=== PATIENT | male | born 1950 | race Caucasian/White ===

== ENCOUNTER 2018-09-30 11:59 | Inpatient (IN) ==
[2018-09-30] MEDS ORDERED: Lactulose Oral Soln 20 GM/30 ML UDC PO PRN (12:28)
[2018-09-30 14:45] LABS: Basophils % 1.1 %; Eosinophils # 0.1 K/mcL (0.0-0.6); Eosinophils % 4.5 %; Hematocrit 37.5 % (37.5-50.1); Hemoglobin 11.8 g/dL (12.9-16.9); Immature Granulocytes % 0.4 % (0-4); Lymphocytes # 0.6 K/mcL (0.6-4.6); Lymphocytes % 21.6 %; Mean Corpuscular HGB Conc 31.5 g/dL (31.6-35.5); Mean Corpuscular Hemoglobin 34.7 pg (28.0-33.3); Mean Corpuscular Volume 110.3 fL (83.0-100.0); Mean Platelet Volume 12.2 fL (9.4-12.4); Monocytes # 0.3 K/mcL (0.0-1.3); Monocytes % 11.5 %; Neutrophils # 1.6 K/mcL (1.6-8.9); Red Cell Distribution Width 13.3 % (11.5-14.5); Segmented Neutrophils % 60.9 %
[2018-09-30 14:46] LABS: Platelet Count 47 K/mcL (140-400)
[2018-09-30 15:02] LABS: BUN/Creatinine Ratio 14 (6-26); Blood Urea Nitrogen 16 mg/dL (8-23); Calcium 11.5 mg/dL (8.6-10.3); Carbon Dioxide 45 mEq/L (23-29); Chloride 96 mEq/L (98-107); Glucose 89 mg/dL (70-105); Osmolality,Calculated 291 (280-300); Potassium 4.1 mEq/L (3.5-5.1); Sodium 140 mEq/L (136-145); eGFR For Non-African Americans > 60 (> 60)
[2018-09-30 15:28] LABS: Macrocytosis Present (Not Present); Platelet Estimate Decreased (Normal)
[2018-09-30] MEDS: *HR* Metformin 500 MG TABLET PO SCH (17:03)
[2018-09-30] MEDS: Melatonin 3 MG TABLET PO PRN (21:09)
[2018-10-01] MEDS: Spironolactone 25 MG TABLET PO SCH (09:00)
[2018-10-01] MEDS: Aspirin Enteric Coated 81 MG Tablet PO SCH (09:00)
[2018-10-01] MEDS: Furosemide 40 MG TABLET PO SCH (09:00)
[2018-10-01] MEDS ORDERED: Multivit/Ca/Min/Fe/FA 1 TAB TABLET PO SCH (09:00)
[2018-10-01] MEDS ORDERED: amLODIPine 5 MG TABLET PO SCH (09:00)
[2018-10-01] MEDS: *HR* Metformin 500 MG TABLET PO SCH (09:00)
--- NOTE | 2018-10-01 16:03 | Internal Med History&Physical ---
Date of Encounter: 10/01/18 Time of Encounter: 15:25 Assessment and Plan (1) Hepatic encephalopathy Current visit: Yes Status: Acute Continue Xifaxan. Schedule lactulose and monitor clinical response. (2) Cirrhosis Current visit: No Status: Chronic Likely secondary to hepatitis C. Rx hepatic encephalopathy as per above. Follow-up at [facility] as scheduled. Qualifiers: Hepatic cirrhosis type: unspecified hepatic cirrhosis Ascites presence: without ascites Qualified Code(s): K74.60 - Unspecified cirrhosis of liver (3) Hypercalcemia Current visit: No Status: Acute Probable primary hyperparathyroidism. Discontinue multivitamin with calcium. Continue oral Lasix and monitor labs. (4) Hyperuricemia Current visit: Yes Status: Acute Uric acid was elevated at 8.4 on 12/04/2016. Recheck in a.m. (5) Hypertension Current visit: Yes Status: Chronic Discontinue amlodipine due to edema. Continue Lasix and Aldactone. Qualifiers: Hypertension type: essential hypertension Qualified Code(s): I10 - Essential (primary) hypertension (6) Pancytopenia Current visit: No Status: Chronic Likely secondary to cirrhosis. Continue to monitor labs. (7) Sleep apnea Current visit: No Status: Acute Continue BiPAP at bedtime Qualifiers: Sleep apnea type: unspecified type Qualified Code(s): G47.30 - Sleep apnea, unspecified Internal Medicine - H&P: HPI Chief complaint: Pulmonary edema, ADRIA Admitted From: Hospital to Hospital Transfer Plans for Post Hospital Care: Home History of present illness: Mr. Hicks is a 68 year old male who was hospitalized at [facility] September 20-September 30 after presenting with pulmonary edema. Echocardiogram showed LVEF of 60%. Interventricular septum and posterior wall thickness measurements were 0.87 and 0.97 respectively. The E/A ratio was 0.9. BN peptide was normal at 46 . No significant valvular abnormality was seen. He was diagnosed with diastolic heart failure. He had confusion felt to be secondary to hepatic encephalopathy. He also had hypercalcemia with workup showing likely primary hyperparathyroidism. He had pancytopenia felt likely related to cirrhosis. He was qualified for BiPAP for ADRIA. He was discharged to [facility] swing bed for ongoing care needs. He complains of some discomfort in his low back but denies other new complaints at this time. Past Med Surg Social Fam HX - Past Medical History Medical history: cirrhosis, diabetes, hepatitis, hyperlipidemia, hypertension Psychiatric history: no psych history - Social History Smoking Status: Former smoker Smokeless Tobacco Status: No Alcohol use: none Drug use: none Internal Medicine - H&P: Meds Aspirin [Lo-Dose Aspirin EC] 81 mg PO DAILY 09/20/18 [History] Furosemide [Lasix] 40 mg PO DAILY 09/20/18 [History] Lactulose 20 gm PO BID PRN 09/20/18 [History] Melatonin 10 mg PO HS PRN 09/20/18 [History] Multivitamin [Daily Multiple Vitamin] 1 each PO DAILY 09/20/18 [History] Omeprazole [PriLOSEC] 20 mg PO DAILY 09/20/18 [History] Rifaximin [Xifaxan] 550 mg PO BID 09/20/18 [History] Sertraline [Zoloft] 50 mg PO DAILY 09/20/18 [History] Spironolactone [Aldactone] 50 mg PO DAILY 09/20/18 [History] amLODIPine [Norvasc] 5 mg PO DAILY 09/20/18 [History] metFORMIN [Glucophage] 500 mg PO BIDWM 09/20/18 [History] Allergy/AdvReac Type Severity Reaction Status Date / Time No Known Allergies Allergy Verified 09/20/18 19:41 All Systems PM: A 10-system review of systems was performed and is negative for pertinent findings except as documented above in the HPI. Review of systems: Gen.: His weight has changed minimally from May 2014 hospitalization of 129.274 kg to present weight of 127.545 kg Cardiovascular: He was felt to have diastolic heart failure at [facility] although BN peptide was normal. He has history of hypertension but no [place] DVT or pulmonary embolus. He reports a heart catheter February 2018 at [facility] showed 30-40% stenosis in a vessel. No intervention was done. Respiratory: He smoked from age [age] up to 2 packs per day. He had PFTs several years ago which he reports were unremarkable. He has ADRIA and recently qualified for BiPAP at [facility]. GI: He has cirrhosis felt to be secondary to hepatitis C infection. He reports antiviral treatment at [facility] several years ago resulted in cure of hepatitis C. He was briefly on the liver transplant list but states he is no longer on the list. He has hepatic encephalopathy and is on Xifaxan and lactulose. He denies other liver disorders or problems with gallbladder or exocrine pancreas. He has occasional GERD symptoms : He has had kidney stones in the past. He has been diagnosed with chronic kidney disease stage III. Neurologic: No history of large distribution strokes or seizures. Endocrine: He was diagnosed borderline DM 2 in the past. His most recent hemoglobin A1c was 5.9% on 07/06/2016. He has a diagnosis of hyperlipidemia. Hematology/oncology: He has pancytopenia felt secondary to cirrhosis. He denies known internal malignancies Psychiatric: He has depression but no significant anxiety other mental health diagnoses [place] skeletal: He has no significant arthritis gout or osteoporosis. He has frequent low back pain. - Constitutional Vitals: Temp Pulse Resp BP Pulse Ox 97.8 F 63 18 124/73 92 10/01/18 07:28 10/01/18 07:28 10/01/18 07:28 10/01/18 07:28 10/01/18 12:13 Exam: Gen.: He is a well-developed overweight male lying in bed who appears in no acute distress at present time HEENT: Head is atraumatic and normocephalic. Eyes: EOMI. There is no scleral icterus. Mouth: Mucosa is moist. Neck: Supple and nontender. There is no thyromegaly or adenopathy noted. Heart: Regular without murmurs gallops or ectopics Lungs: No wheezes or crackles are heard. Abdomen: Soft and nontender. No masses or guarding are noted. Extremities: He has 1+ edema of the dorsal feet and lower legs bilaterally. Dorsalis pedis and posttibial pulses are trace palpable. Neurologic: Mental status: He is talkative and appropriate in conversation. Cranial nerves: Smile is symmetric. Forehead wrinkles bilaterally. Tongue protrudes midline. EOMI. Motor: There is no pronator drift. Cerebellar: Finger to nose is intact bilaterally. Skin: Warm and dry Internal Med - H&P Results - Labs CBC & Chem 7: 09/30/18 14:38 09/30/18 14:38
[2018-10-02] MEDS: Lactulose Oral Soln 20 GM/30 ML UDC PO SCH (08:41)
[2018-10-02] MEDS: Aspirin Enteric Coated 81 MG Tablet PO SCH (08:41)
[2018-10-02] MEDS: Furosemide 40 MG TABLET PO SCH (08:42)
[2018-10-02] MEDS: Spironolactone 25 MG TABLET PO SCH (08:42)
--- NOTE | 2018-10-02 10:41 | Internal Med Progress Note ---
Date of Encounter: 10/02/18 Time of Encounter: 10:34 - Assessment and plan (1) Hepatic encephalopathy Current Visit: Yes Status: Acute Assessment and plan: October 02. Continue Xifaxan and lactulose. (2) Cirrhosis Current Visit: No Status: Chronic Assessment and plan: October 02. Likely secondary to hepatitis C. Rx hepatic encephalopathy as above and follow-up at [facility] as scheduled. Qualifiers: Hepatic cirrhosis type: unspecified hepatic cirrhosis Ascites presence: without ascites Qualified Code(s): K74.60 - Unspecified cirrhosis of liver (3) Hypercalcemia Current Visit: No Status: Acute Assessment and plan: October 02. Probably primary hyperparathyroidism. Continue oral diuretic and monitor labs. (4) Hyperuricemia Current Visit: Yes Status: Acute Assessment and plan: October 02. Uric acid level pending. (5) Hypertension Current Visit: Yes Status: Chronic Assessment and plan: October 02. Remain off amlodipine. Continue Lasix and Aldactone. Qualifiers: Hypertension type: essential hypertension Qualified Code(s): I10 - Essential (primary) hypertension (6) Pancytopenia Current Visit: No Status: Chronic Assessment and plan: October 02. Likely secondary to cirrhosis. Continue to monitor labs. (7) Sleep apnea Current Visit: No Status: Acute Assessment and plan: October 02. Continue BiPAP at bedtime. Will do room air oximetry prior to discharge to see if home oxygen is needed. Qualifiers: Sleep apnea type: unspecified type Qualified Code(s): G47.30 - Sleep apnea, unspecified - Subjective Interval history: October 02. He has no new complaints. He inquired about going home soon. - Constitutional Vitals: Temp Pulse Resp BP Pulse Ox 98.3 F 66 16 131/74 96 10/01/18 19:22 10/02/18 06:34 10/02/18 06:34 10/02/18 06:34 10/02/18 06:34 Exam: He is resting comfortably in bed wearing oxygen nasal cannula. His affect is bright and cheerful. He is appropriate in conversation. I reviewed his me dications and lab results. Internal Medicine: Result - Labs CBC & Chem 7: 09/30/18 14:38 09/30/18 14:38 Consult Discharge Plan - Plan Referrals: Carolyn Mata, [facility]INKLER [Primary Care Provider] - 1 week
[2018-10-02 11:14] LABS: Alanine Aminotransferase 25 Units/L (7-52); Albumin 2.8 g/dL (3.5-5.7); Albumin/Globulin Ratio 0.9 (1.1-2.2); Alkaline Phosphatase 81 Units/L (34-104); Aspartate Amino Transferase 38 Units/L (13-39); BUN/Creatinine Ratio 12 (6-26); Bilirubin,Total 1.2 mg/dL (0.3-1.0); Blood Urea Nitrogen 16 mg/dL (8-23); Calcium 11.7 mg/dL (8.6-10.3); Carbon Dioxide > 45 mEq/L (23-29); Chloride 97 mEq/L (98-107); Glucose 126 mg/dL (70-105); Osmolality,Calculated 295 (280-300); Potassium 4.7 mEq/L (3.5-5.1); Sodium 141 mEq/L (136-145); Total Protein 5.8 g/dL (6.4-8.9); Uric Acid 8.8 mg/dL (2.3-7.6); eGFR For Non-African Americans 55 (> 60)
[2018-10-03] MEDS: Lactulose Oral Soln 20 GM/30 ML UDC PO SCH (08:22)
[2018-10-03] MEDS: Aspirin Enteric Coated 81 MG Tablet PO SCH (08:22)
[2018-10-03] MEDS: Spironolactone 25 MG TABLET PO SCH (08:22)
[2018-10-03] MEDS: Furosemide 40 MG TABLET PO SCH (08:23)
[2018-10-04 07:32] LABS: Basophils % 0.8 %; Eosinophils # 0.1 K/mcL (0.0-0.6); Eosinophils % 4.6 %; Hematocrit 37.4 % (37.5-50.1); Hemoglobin 11.9 g/dL (12.9-16.9); Lymphocytes # 0.7 K/mcL (0.6-4.6); Mean Corpuscular HGB Conc 31.8 g/dL (31.6-35.5); Mean Platelet Volume 12.5 fL (9.4-12.4); Monocytes # 0.3 K/mcL (0.0-1.3); Monocytes % 11.8 %; Neutrophils # 1.5 K/mcL (1.6-8.9); Red Cell Distribution Width 13.4 % (11.5-14.5); Segmented Neutrophils % 56.8 %
[2018-10-04 07:43] LABS: Alanine Aminotransferase 24 Units/L (7-52); Albumin 2.9 g/dL (3.5-5.7); Alkaline Phosphatase 71 Units/L (34-104); Aspartate Amino Transferase 35 Units/L (13-39); BUN/Creatinine Ratio 14 (6-26); Bilirubin,Total 1.2 mg/dL (0.3-1.0); Blood Urea Nitrogen 16 mg/dL (8-23); Calcium 11.6 mg/dL (8.6-10.3); Carbon Dioxide 44 mEq/L (23-29); Chloride 98 mEq/L (98-107); Globulin 2.9 g/dL (2.4-3.5); Glucose 125 mg/dL (70-105); Magnesium 1.9 mg/dL (1.6-2.6); Osmolality,Calculated 297 (280-300); Potassium 4.2 mEq/L (3.5-5.1); Sodium 142 mEq/L (136-145); Total Protein 5.8 g/dL (6.4-8.9); eGFR For Non-African Americans > 60 (> 60)
[2018-10-04] MEDS: Aspirin Enteric Coated 81 MG Tablet PO SCH (08:23)
[2018-10-04] MEDS: Spironolactone 25 MG TABLET PO SCH (08:23)
[2018-10-04] MEDS: Furosemide 40 MG TABLET PO SCH (08:23)
[2018-10-04] MEDS: Lactulose Oral Soln 20 GM/30 ML UDC PO SCH ×2 (08:23→15:23)
[2018-10-04 08:44] LABS: Platelet Count 44 K/mcL (140-400)
--- NOTE | 2018-10-04 12:39 | Internal Med Progress Note ---
Date of Encounter: 10/04/18 Time of Encounter: 12:30 - Assessment and plan (1) Hepatic encephalopathy Current Visit: Yes Status: Acute Assessment and plan: October 02. Continue Xifaxan and lactulose. October 04. Continue present dose Afaxin. Increase lactulose to twice a day since ammonia level has risen to 140. (2) Cirrhosis Current Visit: No Status: Chronic Assessment and plan: October 02. Likely secondary to hepatitis C. Rx hepatic encephalopathy as above and follow-up at [facility] as scheduled. Qualifiers: Hepatic cirrhosis type: unspecified hepatic cirrhosis Ascites presence: without ascites Qualified Code(s): K74.60 - Unspecified cirrhosis of liver (3) Hypercalcemia Current Visit: No Status: Acute Assessment and plan: October 02. Probably primary hyperparathyroidism. Continue oral diuretic and monitor labs. October 04. Calcium level minimally changed at 11.6. His PCP and/or [facility] providers can address further. (4) Hyperuricemia Current Visit: Yes Status: Acute Assessment and plan: October 02. Uric acid level pending. October 04. Uric acid level elevated at 8.8. Allopurinol has been started (5) Hypertension Current Visit: Yes Status: Chronic Assessment and plan: October 02. Remain off amlodipine. Continue Lasix and Aldactone. Qualifiers: Hypertension type: essential hypertension Qualified Code(s): I10 - Essential (primary) hypertension (6) Pancytopenia Current Visit: No Status: Chronic Assessment and plan: October 02. Likely secondary to cirrhosis. Continue to monitor labs. (7) Sleep apnea Current Visit: No Status: Acute Assessment and plan: October 02. Continue BiPAP at bedtime. Will do room air oximetry prior to discharge to see if home oxygen is needed. Qualifiers: Sleep apnea type: unspecified type Qualified Code(s): G47.30 - Sleep apnea, unspecified - Subjective Interval history: October 02. He has no new complaints. He inquired about going home soon. October 04. He has no new complaints. - Constitutional Vitals: Temp Pulse Resp BP Pulse Ox 98 F 74 15 135/66 94 10/04/18 07:09 10/04/18 07:09 10/04/18 07:09 10/04/18 07:09 10/04/18 07:09 Exam: He is resting comfortably in bed and appears in no acute distress. His affect is cheerful. He is very appropriate in conversation. He is not lethargic. I reviewed his medications and lab results. Internal Medicine: Result - Labs CBC & Chem 7: 10/04/18 07:00 10/04/18 07:00 Labs: Short CBC 10/04/18 Range/Units 07:00 WBC 2.6 L (4.3-11.1) K/mcL Hgb 11.9 L (12.9-16.9) g/dL Hct 37.4 L (37.5-50.1) % Plt Count 44 L (140-400) K/mcL Neutrophils # 1.5 L (1.6-8.9) K/mcL BMP 10/04/18 07:00 Sodium 142 Potassium 4.2 Chloride 98 Carbon Dioxide 44 H* BUN 16 Creatinine 1.18 Glucose 125 H Calcium 11.6 H Liver Function 10/04/18 Range/Units 07:00 Total Bilirubin 1.2 H (0.3-1.0) mg/dL AST 35 (13-39) Units/L ALT 24 (7-52) Units/L Alkaline Phosphatase 71 (34-104) Units/L Albumin 2.9 L (3.5-5.7) g/dL Consult Discharge Plan - Plan Referrals: Carolyn Mata CNP [Primary Care Provider] - 1 week
[2018-10-05] MEDS: Lactulose Oral Soln 20 GM/30 ML UDC PO SCH ×2 (08:28→17:46)
[2018-10-05] MEDS: Aspirin Enteric Coated 81 MG Tablet PO SCH (08:28)
[2018-10-05] MEDS: Spironolactone 25 MG TABLET PO SCH (08:28)
[2018-10-05] MEDS: Furosemide 40 MG TABLET PO SCH (08:28)
[2018-10-05] MEDS: Melatonin 3 MG TABLET PO PRN (20:31)
[2018-10-06] MEDS: Spironolactone 25 MG TABLET PO SCH (08:23)
[2018-10-06] MEDS: Lactulose Oral Soln 20 GM/30 ML UDC PO SCH ×2 (08:24→14:04)
[2018-10-06] MEDS: Aspirin Enteric Coated 81 MG Tablet PO SCH (08:24)
[2018-10-06] MEDS: Furosemide 40 MG TABLET PO SCH (08:24)
--- NOTE | 2018-10-06 15:16 | Internal Med Progress Note ---
Date of Encounter: 10/06/18 Time of Encounter: 15:05 - Assessment and plan (1) Hepatic encephalopathy Current Visit: Yes Status: Acute Assessment and plan: October 02. Continue Xifaxan and lactulose. October 04. Continue present dose Xifaxin. Increase lactulose to twice a day since ammonia level has risen to 140. (2) Cirrhosis Current Visit: No Status: Chronic Assessment and plan: October 02. Likely secondary to hepatitis C. Rx hepatic encephalopathy as above and follow-up at [facility] as scheduled. Qualifiers: Hepatic cirrhosis type: unspecified hepatic cirrhosis Ascites presence: without ascites Qualified Code(s): K74.60 - Unspecified cirrhosis of liver (3) Hypercalcemia Current Visit: No Status: Acute Assessment and plan: October 02. Probably primary hyperparathyroidism. Continue oral diuretic and monitor labs. October 04. Calcium level minimally changed at 11.6. His PCP and/or [facility] providers can address further. (4) Hyperuricemia Current Visit: Yes Status: Acute Assessment and plan: October 02. Uric acid level pending. October 04. Uric acid level elevated at 8.8. Allopurinol has been started (5) Hypertension Current Visit: Yes Status: Chronic Assessment and plan: October 02. Remain off amlodipine. Continue Lasix and Aldactone. Qualifiers: Hypertension type: essential hypertension Qualified Code(s): I10 - Essential (primary) hypertension (6) Pancytopenia Current Visit: No Status: Chronic Assessment and plan: October 02. Likely secondary to cirrhosis. Continue to monitor labs. (7) Sleep apnea Current Visit: No Status: Acute Assessment and plan: October 02. Continue BiPAP at bedtime. Will do room air oximetry prior to discharge to see if home oxygen is needed. Qualifiers: Sleep apnea type: unspecified type Qualified Code(s): G47.30 - Sleep apnea, unspecified - Subjective Interval history: October 02. He has no new complaints. He inquired about going home soon. October 04. He has no new complaints. October 06. He has no new complaints. - Constitutional Vitals: Temp Pulse Resp BP Pulse Ox 98.0 F 67 20 135/77 95 10/06/18 06:34 10/06/18 06:34 10/06/18 06:34 10/06/18 06:34 10/06/18 06:34 Exam: He is resting comfortably in bed and appears in no acute distress. His affect is bright and cheerful. I reviewed his medications and lab results. Internal Medicine: Result - Labs CBC & Chem 7: 10/04/18 07:00 10/04/18 07:00 Consult Discharge Plan - Plan Referrals: Carolyn Mata CNP [Primary Care Provider] - 1 week
[2018-10-07 06:44] VITALS: BP 146/70
[2018-10-07] MEDS: Furosemide 40 MG TABLET PO SCH (08:41)
[2018-10-07] MEDS: Lactulose Oral Soln 20 GM/30 ML UDC PO SCH (08:41)
[2018-10-07] MEDS: Aspirin Enteric Coated 81 MG Tablet PO SCH (08:42)
[2018-10-07] MEDS: Spironolactone 25 MG TABLET PO SCH (08:42)
--- NOTE | 2018-10-07 11:04 | Discharge Summary ---
Date of Encounter: 10/07/18 Time of Encounter: 10:55 - Discharge Diagnosis (1) Hepatic encephalopathy Priority: Primary Status: Acute (2) Cirrhosis Priority: Secondary Status: Chronic Qualifiers: Hepatic cirrhosis type: unspecified hepatic cirrhosis Ascites presence: without ascites Qualified Code(s): K74.60 - Unspecified cirrhosis of liver (3) Hypercalcemia Priority: Secondary Status: Acute (4) Hyperuricemia Priority: Secondary Status: Acute (5) Hypertension Priority: Secondary Status: Chronic Qualifiers: Hypertension type: essential hypertension Qualified Code(s): I10 - Essential (primary) hypertension (6) Pancytopenia Priority: Secondary Status: Chronic (7) Sleep apnea Priority: Secondary Status: Acute Qualifiers: Sleep apnea type: unspecified type Qualified Code(s): G47.30 - Sleep apnea, unspecified Hospital course: Mr. Hicks is a 68 year old male who was hospitalized at [facility] September 20-September 30 after presenting with pulmonary edema. Echocardiogram showed LVEF of 60%. Interventricular septum and posterior wall thickness measurements were 0.87 and 0.97 respectively. The E/A ratio was 0.9. BN peptide was normal at 46. No significant valvular abnormality was seen. He was diagnosed with diastolic heart failure. He had confusion felt to be secondary to hepatic encephalopathy. He also had hypercalcemia with workup showing likely primary hyperparathyroidism. He had pancytopenia felt likely related to cirrhosis. He was qualified for BiPAP for ADRIA. He was discharged to [facility] swing bed for ongoing care needs. Initial orders were written by the discharging physicians at [facility]. I saw him on October 01 and performed a swing bed history and physical. He continued on Xifaxan and scheduled Lactulose twice a day. His ammonia level fluctuated but he remained appropriate in conversation without evidence of significant encephalopathy. He will continue this medication regimen at home. His calcium level fluctuated slightly during hospitalization. I told him he should discuss with his PCP further intervention for hypercalcemia. Uric acid level returned elevated at 8.4%. He was started on low-dose allopurinol which will be continued at discharge. Amlodipine was discontinued due to edema. Lasix dose was increased to 60 mg daily. Aldactone was continued. His edema had lessened but not resolved by time of discharge. He will continue this regimen at home. Room air oximetry showed saturation decreasing to 79% prior to beginning ambulation on 6 minute walk. He became dyspneic and required immediate reinstitution of oxygen for comfort and safety. He will be prescribed oxygen at 4 L/m by nasal cannula 18/01 with portable gas and concentrator. Qualifying diagnosis is COPD with hypoxemia not remedied by use of bronchodilators. He qualified for BiPAP during his [facility] stay due to hypoxemia and hypoventilation. Previous use of CPAP did not result in adequate oxygenation. He will be prescribed BiPAP at settings of 06/02 with 40% oxygen bleed in. Qualifying diagnosis is chronic respiratory failure/COPD with hypoventilation and hypoxemia. He will be discharged home and follow with his PCP Carolyn Mata CNP within 1 week. - Time Spent with Patient Total time spent providing and/or coordinating discharge services: - Discharge Medications Prescriptions: New Allopurinol [Zyloprim 100 MG] 200 mg PO DAILY #60 tablet Furosemide [Lasix] 60 mg PO DAILY tablet Continue Sertraline [Zoloft] 50 mg PO DAILY Rifaximin [Xifaxan] 550 mg PO BID Melatonin 10 mg PO HS PRN PRN Reason: Insomnia Spironolactone [Aldactone] 50 mg PO DAILY Aspirin [Lo-Dose Aspirin EC] 81 mg PO DAILY Omeprazole [PriLOSEC] 20 mg PO DAILY Multivitamin [Daily Multiple Vitamin] 1 each PO DAILY Changed Lactulose 20 gm PO BID #0 Discontinued metFORMIN [Glucophage] 500 mg PO BIDWM amLODIPine [Norvasc] 5 mg PO DAILY Furosemide [Lasix] 40 mg PO DAILY Home Medications: Aspirin [Lo-Dose Aspirin EC] 81 mg PO DAILY 09/20/18 [History] Melatonin 10 mg PO HS PRN 09/20/18 [History] Multivitamin [Daily Multiple Vitamin] 1 each PO DAILY 09/20/18 [History] Omeprazole [PriLOSEC] 20 mg PO DAILY 09/20/18 [History] Rifaximin [Xifaxan] 550 mg PO BID 09/20/18 [History] Sertraline [Zoloft] 50 mg PO DAILY 09/20/18 [History] Spironolactone [Aldactone] 50 mg PO DAILY 09/20/18 [History] Allopurinol [Zyloprim 100 MG] 200 mg PO DAILY #60 tablet 10/07/18 [Rx] Furosemide [Lasix] 60 mg PO DAILY tablet 10/07/18 [Rx] Lactulose 20 gm PO BID #0 10/07/18 [Rx] Allergies/Adverse Reactions: Allergy/AdvReac Type Severity Reaction Status Date / Time No Known Allergies Allergy Verified 09/20/18 19:41 Date of admission: 09/30/18 13:44 Primary care physician: Carolyn Mata CNP Consults: 09/30/18 12:34 Consult to Student Support Advisor [CONS] Routine Reason for SW Consult: discharge planning 09/30/18 13:48 Consult to Occupational Therapy [CONS] Routine Comment: Evaluate, develop and implement POC Reason for Consult: Evaluate, develop and implement POC Does patient have active BEDREST order?: No Is patient medically & hemodynamically stable?: Yes Patient assessed for mobility or mobilized this visit?: No Consult to Physical Therapy [CONS] Routine Comment: Evaluate, develop and implement POC Reason for Consult: Evaluate, develop and implement POC Does patient have active BEDREST order?: No Is patient medically & hemodynamically stable?: Yes Patient assessed for mobility or mobilized this visit?: No - Constitutional Vitals: Temp Pulse Resp BP Pulse Ox 98.2 F 71 16 146/70 96 10/07/18 06:42 10/07/18 06:42 10/07/18 06:42 10/07/18 06:42 10/07/18 10:24 - Patient Status Disposition: Home Health Service - Discharge Instructions Follow Up With: Carolyn Mata CNP [Primary Care Provider] - 1 week - Diet and Activity Activity: resume usual activities as tolerated, wear oxygen at all times Diet: advance to your usual diet
--- NOTE | 2018-10-07 11:21 | Physician Discharge Referral ---
Home Health/Hosp Referral Info Transfer to: Home Health Attending Provider: Magdaleno Provider in Charge Post Discharge: PCP (Pat Mata CNP) - Diagnosis (1) Hepatic encephalopathy Priority: Primary Status: Acute (2) Cirrhosis Priority: Secondary Status: Chronic (3) Hypercalcemia Priority: Secondary Status: Acute (4) Hyperuricemia Priority: Secondary Status: Acute (5) Hypertension Priority: Secondary Status: Chronic (6) Pancytopenia Priority: Secondary Status: Chronic (7) Sleep apnea Priority: Secondary Status: Acute - Respiratory Orders Oxygen / L per min (4 L/m by nasal cannula 18/01. Bleed oxygen into BiPAP when in use.) Smoking Cessation: Smoking cessation has been advised. For more information, call the [employer] Tobacco Quit Line at 0-707-ERYY-NOW. - Diet/Nutrition Diet/Nutrition Orders: Cardiac, No Concentrated Sweets - Activity Activity Orders: Ambulate - Services Needed Following services are medically necessary services: Nursing, Home Health Aide, Physical Therapy, Occupational Therapy - Transfer Medications Prescriptions: Allopurinol [Zyloprim 100 MG] 200 mg PO DAILY #60 tablet Home Medications: Aspirin [Lo-Dose Aspirin EC] 81 mg PO DAILY 09/20/18 [History] Melatonin 10 mg PO HS PRN 09/20/18 [History] Multivitamin [Daily Multiple Vitamin] 1 each PO DAILY 09/20/18 [History] Omeprazole [PriLOSEC] 20 mg PO DAILY 09/20/18 [History] Rifaximin [Xifaxan] 550 mg PO BID 09/20/18 [History] Sertraline [Zoloft] 50 mg PO DAILY 09/20/18 [History] Spironolactone [Aldactone] 50 mg PO DAILY 09/20/18 [History] Allopurinol [Zyloprim 100 MG] 200 mg PO DAILY #60 tablet 10/07/18 [Rx] Furosemide [Lasix] 60 mg PO DAILY tablet 10/07/18 [Rx] Lactulose 20 gm PO BID #0 10/07/18 [Rx] Allergies/Adverse Reactions: Allergy/AdvReac Type Severity Reaction Status Date / Time No Known Allergies Allergy Verified 09/20/18 19:41 Certification: Further, I certify that my clinical findings support that this patient is homebound (i.e. absences from home require considerable and taxing effort and are for medical reasons or scientology services or infrequently or short duration when for other reasons) because: Homebound Reason: Leaving home requires considerable and taxing effort due to condition (Chronic respiratory failure with hypoxemia, hypercalcemia, cirrhosis) Attestation: My signature below is to certify that this patient is under my care and that I, or nurse practitioner, or a physician's clinical laboratory assistant working with me, has a fa ce-to-face encounter with this patient.
== END 2018-10-07 12:35 | disposition home health service (06) | DRG 442 ==
LOC: INPPIK 13:44
PROVIDERS: ADMIT Internal Medicine; ATTEND Internal Medicine

== ENCOUNTER 2019-03-14 15:26 | Inpatient (IN) ==
[2019-03-14] MEDS: Lactulose Oral Soln 20 GM/30 ML UDC PO SCH (19:54)
[2019-03-15 07:28] LABS: Basophils % 0.7 %; Eosinophils # 0.3 K/mcL (0.0-0.6); Eosinophils % 6.3 %; Hematocrit 29.2 % (37.5-50.1); Hemoglobin 10.1 g/dL (12.9-16.9); Immature Granulocytes % 0.5 % (0-4); Lymphocytes # 1.2 K/mcL (0.6-4.6); Lymphocytes % 26.6 %; Mean Corpuscular HGB Conc 34.6 g/dL (31.6-35.5); Mean Corpuscular Hemoglobin 36.5 pg (28.0-33.3); Mean Corpuscular Volume 105.4 fL (83.0-100.0); Mean Platelet Volume 12.2 fL (9.4-12.4); Monocytes # 0.4 K/mcL (0.0-1.3); Monocytes % 9.3 %; Neutrophils # 2.5 K/mcL (1.6-8.9); Red Blood Count 2.77 M/mcL (4.19-5.50); Red Cell Distribution Width 13.9 % (11.5-14.5); Segmented Neutrophils % 56.6 %; White Blood Count 4.3 K/mcL (4.3-11.1)
[2019-03-15 07:57] LABS: Platelet Count 80 K/mcL (140-400)
[2019-03-15 08:00] LABS: Calcium 9.9 mg/dL (8.6-10.3)
[2019-03-15] MEDS ORDERED: amLODIPine 5 MG TABLET PO SCH (09:00)
[2019-03-15] MEDS: Lactulose Oral Soln 20 GM/30 ML UDC PO SCH ×3 (09:37→21:11)
--- NOTE | 2019-03-15 09:38 | Internal Med Progress Note ---
Date of Encounter: 03/15/19 Time of Encounter: 09:30 - Assessment and plan (1) Hepatic encephalopathy Current Visit: No Status: Chronic Assessment and plan: March 15. Clinically stable. Continue Xifaxan and lactulose. (2) Anemia Current Visit: No Status: Acute Assessment and plan: March 15. Hemoglobin stable at 10.1 today. Anemia testing showed iron 78, transferrin saturation 51%, transferrin 110, folate 14.9, and ferritin 212. Stool Hemoccult has been ordered. Qualifiers: Anemia type: unspecified type Qualified Code(s): D64.9 - Anemia, unspecified (3) Hypercalcemia Current Visit: No Status: Acute Assessment and plan: March 15. Calcium level 9.9 today. IV fluids will be discontinued. Continue present dose Sensipar and monitor labs periodically. (4) Hyperuricemia Current Visit: No Status: Acute Assessment and plan: March 15. Uric acid level 6.5 on 03/12/2019. Continue allopurinol. (5) Generalized weakness Current Visit: No Status: Acute Assessment and plan: March 15. Continue PT and OT intervention. (6) Acute on chronic renal insufficiency Current Visit: No Status: Acute Assessment and plan: March 15. BUN and creatinine slightly improved at 26 and 1.92 respectively with estimated GFR 35. Continue present Rx and continue to monitor. (7) Hypokalemia Current Visit: No Status: Acute Assessment and plan: March 15. Potassium level WNL at 4.0 today. Continue to monitor. (8) ADRIA (obstructive sleep apnea) Current Visit: No Status: Acute Assessment and plan: March 15. Continue BiPAP at bedtime. (9) Hypomagnesemia Current Visit: No Status: Acute Assessment and plan: March 15. Repeat magnesium level pending. (10) Hypertension Current Visit: No Status: Chronic Assessment and plan: March 15. Continue Lasix and Toprol-XL. Norvasc will be discontinued to lessen edema. He will be started on Cardura. Qualifiers: Hypertension type: essential hypertension Qualified Code(s): I10 - Essential (primary) hypertension - Subjective Interval history: March 15. He was hospitalized at [facility] acute-care February 1417 after presenting with increased confusion, falls, and vomiting. He was found to have elevated ammonia level and hypercalcemia. He had significant improvement during acute-care stay. He had PT and OT intervention and made satisfactory progress but it was felt he would benefit from ongoing care in swing bed. He has no new complaints today. - Constitutional Vitals: Temp Pulse Resp BP Pulse Ox 97.6 F 62 15 143/73 94 03/15/19 06:28 03/15/19 06:28 03/15/19 06:28 03/15/19 06:28 03/15/19 06:28 Exam: He is resting comfortably in bed and appears in no acute distress. His affect is bright and cheerful. Extremities show trace to 1+ pitting edema bilaterally of the dorsum of the feet and lower legs. He is appropriate in conversation. I reviewed his medications and lab results. Internal Medicine: Result - Labs CBC & Chem 7: 03/15/19 06:46 03/15/19 06:46 Labs: Short CBC 03/15/19 Range/Units 06:46 WBC 4.3 (4.3-11.1) K/mcL Hgb 10.1 L (12.9-16.9) g/dL Hct 29.2 L (37.5-50.1) % Plt Count 80 L (140-400) K/mcL Neutrophils # 2.5 (1.6-8.9) K/mcL BMP 03/15/19 06:46 Sodium 138 Potassium 4.0 Chloride 106 Carbon Dioxide 30 H BUN 26 H Creatinine 1.92 H Glucose 99 Calcium 9.9 Consult Discharge Plan - Plan Referrals: Jef Mitchell MD [Primary Care Provider] - 1 week
[2019-03-15] MEDS: Metoprolol XL (24 HR) Succ 25 MG TAB.ER.24H PO SCH (09:39)
[2019-03-15] MEDS: Furosemide 40 MG TABLET PO SCH (09:39)
[2019-03-16] MEDS: Metoprolol XL (24 HR) Succ 25 MG TAB.ER.24H PO SCH (09:15)
[2019-03-16] MEDS: Furosemide 40 MG TABLET PO SCH (09:16)
[2019-03-16] MEDS: Lactulose Oral Soln 20 GM/30 ML UDC PO SCH ×3 (09:17→20:01)
--- NOTE | 2019-03-16 15:15 | Internal Med Progress Note ---
Date of Encounter: 03/16/19 Time of Encounter: 15:05 - Assessment and plan (1) Hepatic encephalopathy Current Visit: No Status: Chronic Assessment and plan: March 15. Clinically stable. Continue Xifaxan and lactulose. (2) Anemia Current Visit: No Status: Acute Assessment and plan: March 15. Hemoglobin stable at 10.1 today. Anemia testing showed iron 78, transferrin saturation 51%, transferrin 110, folate 14.9, and ferritin 212. Stool Hemoccult has been ordered. March 16. Recheck labs in a.m. Qualifiers: Anemia type: unspecified type Qualified Code(s): D64.9 - Anemia, unspecified (3) Hypercalcemia Current Visit: No Status: Acute Assessment and plan: March 15. Calcium level 9.9 today. IV fluids will be discontinued. Continue present dose Sensipar and monitor labs periodically. March 16. Recheck labs in a.m. (4) Hyperuricemia Current Visit: No Status: Acute Assessment and plan: March 15. Uric acid level 6.5 on 03/12/2019. Continue allopurinol. (5) Generalized weakness Current Visit: No Status: Acute Assessment and plan: March 15. Continue PT and OT intervention. (6) Acute on chronic renal insufficiency Current Visit: No Status: Acute Assessment and plan: March 15. BUN and creatinine slightly improved at 26 and 1.92 respectively with estimated GFR 35. Continue present Rx and continue to monitor. March 16. Recheck labs in a.m. (7) Hypokalemia Current Visit: No Status: Acute Assessment and plan: March 15. Potassium level WNL at 4.0 today. Continue to monitor. March 16. Recheck labs in a.m. (8) ADRIA (obstructive sleep apnea) Current Visit: No Status: Acute Assessment and plan: March 15. Continue BiPAP at bedtime. (9) Hypomagnesemia Current Visit: No Status: Acute Assessment and plan: March 15. Repeat magnesium level pending. March 16. Magnesium level remained low at 1.2 yesterday. He will be given magnesium sulfate and recheck labs in a.m. (10) Hypertension Current Visit: No Status: Chronic Assessment and plan: March 15. Continue Lasix and Toprol-XL. Norvasc will be discontinued to lessen edema. He will be started on Cardura. March 16. Blood pressure stable and edema and has resolved. Continue present Rx. Qualifiers: Hypertension type: essential hypertension Qualified Code(s): I10 - Essential (primary) hypertension - Subjective Interval history: March 15. He was hospitalized at [facility] acute-care February 1417 after presenting with increased confusion, falls, and vomiting. He was found to have elevated ammonia level and hypercalcemia. He had significant improvement during acute-care stay. He had PT and OT intervention and made satisfactory progress but it was felt he would benefit from ongoing care in swing bed. He has no new complaints today. March 16. He has no new complaints. - Constitutional Vitals: Temp Pulse Resp BP Pulse Ox 98.3 F 59 20 112/67 94 03/16/19 06:38 03/16/19 09:13 03/16/19 06:38 03/16/19 09:13 03/16/19 09:13 Exam: He is resting comfortably in bed and appears in no acute distress. His affect is cheerful. He is appropriate in conversation. Extremities show no pitting edema. I reviewed his medications and lab results. Internal Medicine: Result - Labs CBC & Chem 7: 03/15/19 06:46 03/15/19 06:46 Consult Discharge Plan - Plan Referrals: Jef Mitchell MD [Primary Care Provider] - 1 week (03/24/19 11:30 AM )
[2019-03-17 06:58] LABS: Albumin 2.7 g/dL (3.5-5.7); Calcium 10.6 mg/dL (8.6-10.3); Globulin 2.8 g/dL (2.4-3.5); Magnesium 1.5 mg/dL (1.6-2.6); Potassium 4.2 mEq/L (3.5-5.1); Total Protein 5.5 g/dL (6.4-8.9)
[2019-03-17 07:06] LABS: Basophils % 0.8 %; Eosinophils # 0.2 K/mcL (0.0-0.6); Eosinophils % 3.2 %; Hematocrit 29.2 % (37.5-50.1); Hemoglobin 10.1 g/dL (12.9-16.9); Immature Granulocytes % 0.6 % (0-4); Lymphocytes # 1.1 K/mcL (0.6-4.6); Lymphocytes % 21.1 %; Mean Corpuscular HGB Conc 34.6 g/dL (31.6-35.5); Mean Corpuscular Hemoglobin 36.6 pg (28.0-33.3); Mean Corpuscular Volume 105.8 fL (83.0-100.0); Mean Platelet Volume 12.8 fL (9.4-12.4); Monocytes # 0.5 K/mcL (0.0-1.3); Monocytes % 9.4 %; Neutrophils # 3.2 K/mcL (1.6-8.9); Red Blood Count 2.76 M/mcL (4.19-5.50); Red Cell Distribution Width 14.3 % (11.5-14.5); Segmented Neutrophils % 64.9 %
[2019-03-17 07:13] LABS: Platelet Count 85 K/mcL (140-400)
[2019-03-17] MEDS: Metoprolol XL (24 HR) Succ 25 MG TAB.ER.24H PO SCH (10:21)
[2019-03-17] MEDS: Furosemide 40 MG TABLET PO SCH (10:21)
[2019-03-17] MEDS: Lactulose Oral Soln 20 GM/30 ML UDC PO SCH ×2 (10:22→15:06)
[2019-03-17] MEDS ORDERED: Acetaminophen 325 MG TABLET PO PRN (15:12)
--- NOTE | 2019-03-17 16:36 | Internal Med Progress Note ---
Date of Encounter: 03/17/19 Time of Encounter: 16:28 - Assessment and plan (1) Hepatic encephalopathy Current Visit: No Status: Chronic Assessment and plan: March 15. Clinically stable. Continue Xifaxan and lactulose. March 17. Trial of decrease lactulose to 30 mL twice daily. Continue Xifaxan and monitor. (2) Anemia Current Visit: No Status: Acute Assessment and plan: March 15. Hemoglobin stable at 10.1 today. Anemia testing showed iron 78, transferrin saturation 51%, transferrin 110, folate 14.9, and ferritin 212. Stool Hemoccult has been ordered. March 16. Recheck labs in a.m. March 17. Hemoglobin stable at 10.1. Continue to monitor periodically. Qualifiers: Anemia type: unspecified type Qualified Code(s): D64.9 - Anemia, unspecifi ed (3) Hypercalcemia Current Visit: No Status: Acute Assessment and plan: March 15. Calcium level 9.9 today. IV fluids will be discontinued. Continue present dose Sensipar and monitor labs periodically. March 16. Recheck labs in a.m. March 17. Corrected calcium level 11.6 today. Continue present Rx and recheck labs in a.m. (4) Hyperuricemia Current Visit: No Status: Acute Assessment and plan: March 15. Uric acid level 6.5 on 03/12/2019. Continue allopurinol. (5) Generalized weakness Current Visit: No Status: Acute Assessment and plan: March 15. Continue PT and OT intervention. (6) Acute on chronic renal insufficiency Current Visit: No Status: Acute Assessment and plan: March 15. BUN and creatinine slightly improved at 26 and 1.92 respectively with estimated GFR 35. Continue present Rx and continue to monitor. March 16. Recheck labs in a.m. March 17. BUN and creatinine have risen to 32 and 2.34 respectively with estimated GFR 28. Recheck labs in a.m. (7) Hypokalemia Current Visit: No Status: Acute Assessment and plan: March 15. Potassium level WNL at 4.0 today. Continue to monitor. March 16. Recheck labs in a.m. March 17. Potassium level normal at 4.2. (8) ADRIA (obstructive sleep apnea) Current Visit: No Status: Acute Assessment and plan: March 15. Continue BiPAP at bedtime. (9) Hypomagnesemia Current Visit: No Status: Acute Assessment and plan: March 15. Repeat magnesium level pending. March 16. Magnesium level remained low at 1.2 yesterday. He will be given magnesium sulfate and recheck labs in a.m. March 17. Magnesium level has risen to 1.5. Start oral magnesium oxide continue to monitor. (10) Hypertension Current Visit: No Status: Chronic Assessment and plan: March 15. Continue Lasix and Toprol-XL. Norvasc will be discontinued to lessen edema. He will be started on Cardura. March 16. Blood pressure stable and edema and has resolved. Continue present Rx. Qualifiers: Hypertension type: essential hypertension Qualified Code(s): I10 - Essential (primary) hypertension - Subjective Interval history: March 15. He was hospitalized at [facility] acute-care February 1417 after presenting with increased confusion, falls, and vomiting. He was found to have elevated ammonia level and hypercalcemia. He had significant improvement during acute-care stay. He had PT and OT intervention and made satisfactory progress but it was felt he would benefit from ongoing care in swing bed. He has no new complaints today. March 16. He has no new complaints. March 17. He reports diarrhea on present dose lactulose. - Constitutional Vitals: Temp Pulse Resp BP Pulse Ox 98.2 F 62 20 97/57 95 03/17/19 06:39 03/17/19 10:17 03/17/19 06:39 03/17/19 10:17 03/17/19 10:20 Exam: He is resting comfortably on the side of the bed and appears in no acute distress. Extremities show trace pitting edema bilaterally. His affect is overall cheerful. He is coherent in conversation. I reviewed his medications and lab results. Internal Medicine: Result - Labs CBC & Chem 7: 03/17/19 06:08 03/17/19 06:08 Labs: Short CBC 03/17/19 Range/Units 06:08 WBC 5.0 (4.3-11.1) K/mcL Hgb 10.1 L (12.9-16.9) g/dL Hct 29.2 L (37.5-50.1) % Plt Count 85 L (140-400) K/mcL Neutrophils # 3.2 (1.6-8.9) K/mcL BMP 03/17/19 06:08 Sodium 134 L Potassium 4.2 Chloride 102 Carbon Dioxide 29 BUN 32 H Creatinine 2.34 H Glucose 109 H Calcium 10.6 H Liver Function 03/17/19 Range/Units 06:08 Total Bilirubin 1.0 (0.3-1.0) mg/dL AST 61 H (13-39) Units/L ALT 56 H (7-52) Units/L Alkaline Phosphatase 164 H (34-104) Units/L Albumin 2.7 L (3.5-5.7) g/dL Consult Discharge Plan - Plan Referrals: Jef Mitchell MD [Primary Care Provider] - 1 week (03/24/19 11:30 AM )
[2019-03-18] MEDS: Metoprolol XL (24 HR) Succ 25 MG TAB.ER.24H PO SCH (09:51)
[2019-03-18] MEDS: Furosemide 40 MG TABLET PO SCH (09:52)
[2019-03-18] MEDS: Lactulose Oral Soln 20 GM/30 ML UDC PO SCH ×2 (09:53→21:02)
[2019-03-19] MEDS: Metoprolol XL (24 HR) Succ 25 MG TAB.ER.24H PO SCH (08:06)
[2019-03-19] MEDS: Lactulose Oral Soln 20 GM/30 ML UDC PO SCH ×2 (08:06→20:54)
[2019-03-19] MEDS: Furosemide 40 MG TABLET PO SCH (08:07)
[2019-03-19 12:04] LABS: Basophils % 1.1 %; Eosinophils # 0.2 K/mcL (0.0-0.6); Eosinophils % 4.9 %; Hematocrit 27.9 % (37.5-50.1); Hemoglobin 9.3 g/dL (12.9-16.9); Immature Granulocytes % 0.8 % (0-4); Lymphocytes # 0.9 K/mcL (0.6-4.6); Lymphocytes % 25.3 %; Mean Corpuscular HGB Conc 33.3 g/dL (31.6-35.5); Mean Corpuscular Hemoglobin 35.6 pg (28.0-33.3); Mean Corpuscular Volume 106.9 fL (83.0-100.0); Mean Platelet Volume 12.3 fL (9.4-12.4); Monocytes # 0.3 K/mcL (0.0-1.3); Monocytes % 8.9 %; Neutrophils # 2.2 K/mcL (1.6-8.9); Red Blood Count 2.61 M/mcL (4.19-5.50); Red Cell Distribution Width 14.5 % (11.5-14.5); White Blood Count 3.7 K/mcL (4.3-11.1)
[2019-03-19 12:05] LABS: Platelet Count 73 K/mcL (140-400)
[2019-03-19 12:18] LABS: Albumin 2.3 g/dL (3.5-5.7); Albumin/Globulin Ratio 0.9 (1.1-2.2); Bilirubin,Total 0.9 mg/dL (0.3-1.0); Calcium 9.5 mg/dL (8.6-10.3); Globulin 2.5 g/dL (2.4-3.5); Total Protein 4.8 g/dL (6.4-8.9)
--- NOTE | 2019-03-19 12:56 | Internal Med Progress Note ---
Date of Encounter: 03/19/19 Time of Encounter: 12:49 - Assessment and plan (1) Hepatic encephalopathy Current Visit: No Status: Chronic Assessment and plan: March 15. Clinically stable. Continue Xifaxan and lactulose. March 17. Trial of decrease lactulose to 30 mL twice daily. Continue Xifaxan and monitor. March 19. Clinically stable. Continue present Rx. (2) Anemia Current Visit: No Status: Acute Assessment and plan: March 15. Hemoglobin stable at 10.1 today. Anemia testing showed iron 78, transferrin saturation 51%, transferrin 110, folate 14.9, and ferritin 212. Stool Hemoccult has been ordered. March 16. Recheck labs in a.m. March 17. Hemoglobin stable at 10.1. Continue to monitor periodically. March 19. Hemoglobin has decreased slightly to 9.3. This can be monitored by his PCP. Qualifiers: Anemia type: unspecified type Qualified Code(s): D64.9 - Anemia, unspecified (3) Hypercalcemia Current Visit: No Status: Acute Assessment and plan: March 15. Calcium level 9.9 today. IV fluids will be discontinued. Cont inue present dose Sensipar and monitor labs periodically. March 16. Recheck labs in a.m. March 17. Corrected calcium level 11.6 today. Continue present Rx and recheck labs in a.m. March 19. Corrected calcium level is 10.9. Continue present Rx. (4) Hyperuricemia Current Visit: No Status: Acute Assessment and plan: March 15. Uric acid level 6.5 on 03/12/2019. Continue allopurinol. (5) Generalized weakness Current Visit: No Status: Acute Assessment and plan: March 15. Continue PT and OT intervention. March 19. Continue present Rx. He will be discharged home 03/21/2019 with home health services order. (6) Acute on chronic renal insufficiency Current Visit: No Status: Acute Assessment and plan: March 15. BUN and creatinine slightly improved at 26 and 1.92 respectively with estimated GFR 35. Continue present Rx and continue to monitor. March 16. Recheck labs in a.m. March 17. BUN and creatinine have risen to 32 and 2.34 respectively with estimated GFR 28. Recheck labs in a.m. March 19. Creatinine has decreased to 1.9 with estimated GFR 33. Continue present Rx. (7) Hypokalemia Current Visit: No Status: Acute Assessment and plan: March 15. Potassium level WNL at 4.0 today. Continue to monitor. March 16. Recheck labs in a.m. March 17. Potassium level normal at 4.2. (8) ADRIA (obstructive sleep apnea) Current Visit: No Status: Acute Assessment and plan: March 15. Continue BiPAP at bedtime. (9) Hypomagnesemia Current Visit: No Status: Acute Assessment and plan: March 15. Repeat magnesium level pending. March 16. Magnesium level remained low at 1.2 yesterday. He will be given magnesium sulfate and recheck labs in a.m. March 17. Magnesium level has risen to 1.5. Start oral magnesium oxide continue to monitor. (10) Hypertension Current Visit: No Status: Chronic Assessment and plan: March 15. Continue Lasix and Toprol-XL. Norvasc will be discontinued to lessen edema. He will be started on Cardura. March 16. Blood pressure stable and edema and has resolved. Continue present Rx. Qualifiers: Hypertension type: essential hypertension Qualified Code(s): I10 - Essential (primary) hypertension - Subjective Interval history: March 15. He was hospitalized at [facility] acute-care February 1417 after presenting with increased confusion, falls, and vomiting. He was found to have elevated ammonia level and hypercalcemia. He had significant improvement during acute-care stay. He had PT and OT intervention and made satisfactory progress but it was felt he would benefit from ongoing care in swing bed. He has no new complaints today. March 16. He has no new complaints. March 17. He reports diarrhea on present dose lactulose. March 19. He has no new complaints. - Constitutional Vitals: Temp Pulse Resp BP Pulse Ox 98.6 F 66 18 97/51 93 03/19/19 06:45 03/19/19 06:45 03/19/19 06:45 03/19/19 06:45 03/19/19 06:45 Exam: He is resting comfortably on the side of bed and appears in no acute distress. His affect is bright and cheerful. He is appropriate in conversation. I reviewed his medications and lab results. Internal Medicine: Result - Labs CBC & Chem 7: 03/19/19 11:51 03/19/19 11:51 Labs: Short CBC 03/19/19 Range/Units 11:51 WBC 3.7 L (4.3-11.1) K/mcL Hgb 9.3 L (12.9-16.9) g/dL Hct 27.9 L (37.5-50.1) % Plt Count 73 L (140-400) K/mcL Neutrophils # 2.2 (1.6-8.9) K/mcL BMP 03/19/19 11:51 Sodium 136 Potassium 4.0 Chloride 105 Carbon Dioxide 28 BUN 31 H Creatinine 1.99 H Glucose 113 H Calcium 9.5 Liver Function 03/19/19 Range/Units 11:51 Total Bilirubin 0.9 (0.3-1.0) mg/dL AST 48 H (13-39) Units/L ALT 45 (7-52) Units/L Alkaline Phosphatase 173 H (34-104) Units/L Albumin 2.3 L (3.5-5.7) g/dL Consult Discharge Plan - Plan Referrals: Jef Mitchell MD [Primary Care Provider] - 1 week (03/24/19 11:30 AM )
[2019-03-19] MEDS ORDERED: Mag Hydrox/Al Hydrox/Simeth 30 ML UDC PO PRN (12:59)
[2019-03-19] MEDS: Magnesium Oxide 400 MG TABLET PO SCH (14:20)
[2019-03-20] MEDS: Magnesium Oxide 400 MG TABLET PO SCH (08:12)
[2019-03-20] MEDS: Metoprolol XL (24 HR) Succ 25 MG TAB.ER.24H PO SCH (08:13)
[2019-03-20] MEDS: Furosemide 40 MG TABLET PO SCH (08:13)
[2019-03-20] MEDS: Lactulose Oral Soln 20 GM/30 ML UDC PO SCH ×2 (08:13→20:41)
[2019-03-21 07:01] VITALS: BP 126/70
[2019-03-21] MEDS: Lactulose Oral Soln 20 GM/30 ML UDC PO SCH (08:09)
[2019-03-21] MEDS: Furosemide 40 MG TABLET PO SCH (08:10)
[2019-03-21] MEDS: Metoprolol XL (24 HR) Succ 25 MG TAB.ER.24H PO SCH (08:10)
[2019-03-21] MEDS: Magnesium Oxide 400 MG TABLET PO SCH (08:10)
--- NOTE | 2019-03-21 09:48 | Discharge Summary ---
Date of Encounter: 03/21/19 Time of Encounter: 09:35 - Discharge Diagnosis (1) Hepatic encephalopathy Priority: Primary Status: Chronic (2) Hypercalcemia Priority: Secondary Status: Acute (3) Anemia Priority: Secondary Status: Acute Qualifiers: Anemia type: unspecified type Qualified Code(s): D64.9 - Anemia, unspecified (4) Hyperuricemia Priority: Secondary Status: Acute (5) Generalized weakness Priority: Secondary Status: Acute (6) Acute on chronic renal insufficiency Priority: Secondary Status: Acute (7) Hypokalemia Priority: Secondary Status: Resolved (8) ADRIA (obstructive sleep apnea) Priority: Secondary Status: Acute (9) Hypomagnesemia Priority: Secondary Status: Acute (10) Hypertension Priority: Secondary Status: Chronic Qualifiers: Hypertension type: essential hypertension Qualified Code(s): I10 - Essential (primary) hypertension Hospital course: Mr. Hicks is a 69 year old male who was hospitalized at [facility] acute-care February 1417 after presenting with increased confusion, falls, and vomiting. He was found to have elevated ammonia level and hypercalcemia. He had significant improvement during acute-care stay. He had PT and OT intervention and made satisfactory progress but it was felt he would benefit from ongoing care in swing bed. He has no new complaints today. He continued on Xifaxan and lactulose with stable mental status. Present doses of these medications will be continued at discharge. Calcium level had decreased to 9.5 by March 19 with albumin 2.3. He. He appeared to be at baseline mental status. He will continue present regimen of higher dose Sensipar 30 mg twice a day. He was given supplemental magnesium by oral and IV routes. Magnesium level was 1.5 on March 17. He will continue supplemental magnesium orally for one week at discharge. His PCP can monitor labs and determine if additional Rx is needed. BUN and creatinine were stable at 31 and 1.99 respectively on March 19. His PCP can monitor labs.. He made satisfactory progress in therapy. On March 21 he was stable for discharge home. He will follow with his PCP Dr. Jef Mitchell within 1 week. - Time Spent with Patient Total time spent providing and/or coordinating discharge services: - Discharge Medications Prescriptions: New Doxazosin [Cardura] 1 mg PO HS #30 tablet Magnesium Oxide [Mag-Ox] 400 mg PO DAILY #7 tablet Continued Sertraline [Zoloft] 50 mg PO DAILY Rifaximin [Xifaxan] 550 mg PO BID Lactulose [Kristalose] 30 gm PO TID Allopurinol [Zyloprim 100 MG] 100 mg PO DAILY Furosemide [Lasix] 40 mg PO DAILY tablet Cinacalcet [Sensipar] 30 mg PO BID #60 tablet Metoprolol XL (24 HR) Succ [Toprol Xl] 12.5 mg PO DAILY #15 tab.er.24h Discontinued amLODIPine [Norvasc] 5 mg PO DAILY Home Medications: Rifaximin [Xifaxan] 550 mg PO BID 09/20/18 [History] Sertraline [Zoloft] 50 mg PO DAILY 09/20/18 [History] Lactulose [Kristalose] 30 gm PO TID 11/03/18 [History] Allopurinol [Zyloprim 100 MG] 100 mg PO DAILY 03/11/19 [History] Furosemide [Lasix] 40 mg PO DAILY tablet 03/14/19 [Rx] Cinacalcet [Sensipar] 30 mg PO BID #60 tablet 03/21/19 [Rx] Doxazosin [Cardura] 1 mg PO HS #30 tablet 03/21/19 [Rx] Magnesium Oxide [Mag-Ox] 400 mg PO DAILY #7 tablet 03/21/19 [Rx] Metoprolol XL (24 HR) Succ [Toprol Xl] 12.5 mg PO DAILY #15 tab.er.24h 03/21/19 [Rx] Allergies/Adverse Reactions: Allergy/AdvReac Type Severity Reaction Status Date / Time No Known Allergies Allergy Verified 11/03/18 12:46 Date of admission: 03/14/19 16:22 Primary care physician: Jef Mitchell MD Consults: 03/14/19 16:06 Consult to Occupational Therapy [CONS] Routine Comment: Evaluate, develop and implement POC Reason for Consult: weakness Does patient have active BEDREST order?: No Is patient medically & hemodynamically stable?: Yes Patient assessed for mobility or mobilized this visit?: Yes PT [Consult to Physical Therapy] [CONS] Routine Comment: Evaluate, develop and implement POC Reason for Consult: weakness Does patient have active BEDREST order?: No Is patient medically & hemodynamically stable?: Yes Patient assessed for mobility or mobilized this visit?: Yes 03/14/19 16:07 Consult to [facility] Consultant [CONS] Routine Reason for SW Consult: possible need for follow up home health - Constitutional Vitals: Temp Pulse Resp BP Pulse Ox 98.6 F 58 16 126/70 94 03/21/19 07:00 03/21/19 07:00 03/21/19 07:00 03/21/19 07:00 03/21/19 07:00 - Patient Status Disposition: Home, Self-Care - Discharge Instructions Follow Up With: Jef Mitchell MD [Primary Care Provider] - 1 week (03/24/19 11:30 AM ) - Diet and Activity Activity: resume usual activities as tolerated Diet: regular diet
--- NOTE | 2019-03-21 09:54 | Physician Discharge Referral ---
Home Health/Hosp Referral Info Transfer to: Home Health Attending Provider: Magdaleno Provider in Charge Post Discharge: PCP (Jef Mitchell M.D.) - Diagnosis (1) Hepatic encephalopathy Priority: Primary Status: Chronic (2) Hypercalcemia Priority: Secondary Status: Acute (3) Anemia Priority: Secondary Status: Acute (4) Hyperuricemia Priority: Secondary Status: Acute (5) Generalized weakness Priority: Secondary Status: Acute (6) Acute on chronic renal insufficiency Priority: Secondary Status: Acute (7) Hypokalemia Priority: Secondary Status: Resolved (8) ADRIA (obstructive sleep apnea) Priority: Secondary Status: Acute (9) Hypomagnesemia Priority: Secondary Status: Acute (10) Hypertension Priority: Secondary Status: Chronic - Respiratory Orders Smoking Cessation: Smoking cessation has been advised. For more information, call the [employer] Quit Line at 9-979-DXFF-NOW. - Diet/Nutrition Diet/Nutrition Orders: Regular - Activity Activity Orders: Walker - Services Needed Following services are medically necessary services: Nursing, Home Health Aide, Physical Therapy, Occupational Therapy - Transfer Medications Prescriptions: Doxazosin [Cardura] 1 mg PO HS #30 tablet Transmission Status: [id number] Magnesium Oxide [Mag-Ox] 400 mg PO DAILY #7 tablet Prescription Printed Cinacalcet [Sensipar] 30 mg PO BID #60 tablet Transmission Status: Pending to [id number] Metoprolol XL (24 HR) Succ [Toprol Xl] 12.5 mg PO DAILY #15 tab.er.24h Transmission Status: Pending to [id number] Home Medications: Rifaximin [Xifaxan] 550 mg PO BID 09/20/18 [History] Sertraline [Zoloft] 50 mg PO DAILY 09/20/18 [History] Lactulose [Kristalose] 30 gm PO TID 11/03/18 [History] Allopurinol [Zyloprim 100 MG] 100 mg PO DAILY 03/11/19 [History] Furosemide [Lasix] 40 mg PO DAILY tablet 03/14/19 [Rx] Cinacalcet [Sensipar] 30 mg PO BID #60 tablet 03/21/19 [Rx] Doxazosin [Cardura] 1 mg PO HS #30 tablet 03/21/19 [Rx] Magnesium Oxide [Mag-Ox] 400 mg PO DAILY #7 tablet 03/21/19 [Rx] Metoprolol XL (24 HR) Succ [Toprol Xl] 12.5 mg PO DAILY #15 tab.er.24h 03/21/19 [Rx] Allergies/Adverse Reactions: Allergy/AdvReac Type Severity Reaction Status Date / Time No Known Allergies Allergy Verified 11/03/18 12:46 Certification: Further, I certify that my clinical findings support that this patient is homebound (i.e. absences from home require considerable and taxing effort and are for medical reasons or judaism services or infrequently or short duration when for other reasons) because: Homebound Reason: Leaving home requires considerable and taxing effort due to condition (Impaired walking ability, hepatic encephalopathy, weakness) Attestation: My signature below is to certify that this patient is under my care and that I, or nurse practitioner, or a physician's staff physical therapy assistant working with me, has a face- to-face encounter with this patient.
== END 2019-03-21 11:14 | disposition home or self-care (01) | DRG 442 ==
LOC: INPPIK 16:22
PROVIDERS: ADMIT Internal Medicine; ATTEND Internal Medicine

== ENCOUNTER 2019-07-07 17:49 | Inpatient (IN) ==
[2019-07-07] MEDS ORDERED: Lactulose Oral Soln 20 GM/30 ML UDC PO ONE (18:21)
[2019-07-07 18:32] LABS: Bilirubin,Urine Negative (Negative); Blood,Urine Small (Negative); Clarity,Urine Clear (Clear); Color,Urine Yellow (Yellow); Glucose,Urine (UA) Normal (Normal); Ketones,Urine Negative (Negative); Leukocyte Esterase,Urine Trace (Negative); Nitrite,Urine Negative (Negative); PH,Urine 8.5 pH Units (5.0-8.0); Protein,Urine Negative (Neg-Trace); Specific Gravity,Urine 1.015 (1.010-1.025); Urobilinogen,Urine Normal (Normal)
[2019-07-07 18:40] LABS: Amphetamine Screen,Urine Negative ng/mL (Cutoff=1000); Barbiturate Screen,Urine Negative ng/mL (Cutoff=200); Benzodiazepines Screen,Urine Negative ng/mL (Cutoff=200); Cannabinoid Screen,Urine Negative ng/mL (Cutoff = 50); Cocaine Screen,Urine Negative ng/mL (Cutoff= 300); Opiate Screen,Urine Negative ng/mL (Cutoff=300); Phencyclidine Screen,Urine Negative ng/mL (Cutoff=25)
[2019-07-07 19:00] LABS: Basophils % 0.7 %; Eosinophils # 0.1 K/mcL (0.0-0.6); Eosinophils % 3.1 %; Hemoglobin 10.7 g/dL (12.9-16.9); Immature Granulocytes % 0.7 % (0-4); Lymphocytes # 0.9 K/mcL (0.6-4.6); Lymphocytes % 22.2 %; Mean Corpuscular HGB Conc 33.4 g/dL (31.6-35.5); Mean Corpuscular Hemoglobin 33.3 pg (28.0-33.3); Mean Corpuscular Volume 99.7 fL (83.0-100.0); Mean Platelet Volume 12.2 fL (9.4-12.4); Monocytes # 0.3 K/mcL (0.0-1.3); Monocytes % 7.2 %; Red Blood Count 3.21 M/mcL (4.19-5.50); Red Cell Distribution Width 14.8 % (11.5-14.5); Segmented Neutrophils % 66.1 %; White Blood Count 4.2 K/mcL (4.3-11.1)
[2019-07-07 19:04] LABS: WBC,Urine 0-3 per hpf (0-3)
[2019-07-07 19:05] LABS: Bacteria,Urine Few per hpf (None-Few); Squamous Epithelial Cell,Urine Few per lpf (None-Few)
[2019-07-07 19:06] LABS: INR 1.4; Neutrophils # 2.8 K/mcL (1.6-8.9); Platelet Count 68 K/mcL (140-400); Prothrombin Time 15.8 Seconds (9.4-12.1)
[2019-07-07 19:08] LABS: Activated Partial Thrombo Time 29.1 Seconds (26.0-36.0)
[2019-07-07 19:15] LABS: Alanine Aminotransferase 21 Units/L (7-52); Albumin 2.5 g/dL (3.5-5.7); Albumin/Globulin Ratio 0.9 (1.1-2.2); Alkaline Phosphatase 87 Units/L (34-104); Aspartate Amino Transferase 29 Units/L (13-39); BUN/Creatinine Ratio 17 (6-26); Bilirubin,Direct 0.2 mg/dL (0.0-0.2); Bilirubin,Indirect 1.1 mg/dL (0.0-1.0); Bilirubin,Total 1.3 mg/dL (0.3-1.0); Blood Urea Nitrogen 29 mg/dL (8-23); Calcium 9.6 mg/dL (8.6-10.3); Carbon Dioxide 28 mEq/L (23-29); Chloride 110 mEq/L (98-107); Ethanol < 10 mg/dL (Less than 10); Globulin 2.8 g/dL (2.4-3.5); Glucose 107 mg/dL (70-105); Osmolality,Calculated 302 (280-300); Potassium 3.9 mEq/L (3.5-5.1); Sodium 143 mEq/L (136-145); Total Protein 5.3 g/dL (6.4-8.9); eGFR For African Americans 48 (> 60); eGFR For Non-African Americans 40 (> 60)
[2019-07-07 19:17] LABS: Troponin I < 0.03 ng/mL (< 0.04)
[2019-07-07] MEDS ORDERED: Naloxone 0.4 MG/ML INJ IVP PRN (23:35)
[2019-07-07] MEDS: 0.9 % Sodium Chloride 1,000 ML IVC SCH (23:48)
[2019-07-08] MEDS ORDERED: Lactulose 200 GM/300 ML (for enema) RC SCH (09:00)
[2019-07-08] MEDS: Lactulose 200 GM, Sodium Chloride IRRigation 700 ML RC SCH ×2 (09:22→19:59)
[2019-07-08] MEDS ORDERED: Haloperidol Lactate 5 MG/ML VIAL IVP ONE ×2 (13:45→21:28)
[2019-07-08] MEDS: 0.9 % Sodium Chloride 1,000 ML IVC SCH (13:58)
[2019-07-09 05:34] LABS: Hematocrit 29.5 % (37.5-50.1); Hemoglobin 9.9 g/dL (12.9-16.9); Mean Corpuscular HGB Conc 33.6 g/dL (31.6-35.5); Mean Corpuscular Volume 101.4 fL (83.0-100.0); Mean Platelet Volume 11.7 fL (9.4-12.4); Red Blood Count 2.91 M/mcL (4.19-5.50); Red Cell Distribution Width 15.5 % (11.5-14.5); White Blood Count 3.5 K/mcL (4.3-11.1)
[2019-07-09 05:37] LABS: Platelet Count 53 K/mcL (140-400)
[2019-07-09 05:50] LABS: Albumin 2.6 g/dL (3.5-5.7); Bilirubin,Total 1.9 mg/dL (0.3-1.0); Calcium 9.4 mg/dL (8.6-10.3); Globulin 2.5 g/dL (2.4-3.5); Potassium 3.8 mEq/L (3.5-5.1); Total Protein 5.1 g/dL (6.4-8.9)
[2019-07-09] MEDS ORDERED: Lactulose Oral Soln 20 GM/30 ML UDC PO ONE (08:28)
[2019-07-09] MEDS ORDERED: 0.9 % Sodium Chloride 1,000 ML IVC ONE (08:34)
[2019-07-09] MEDS: Lactulose 200 GM, Sodium Chloride IRRigation 700 ML RC SCH (09:47)
[2019-07-09] MEDS: D5% in 0.45% NACL 1,000 ML IVC SCH ×2 (11:37→16:51)
[2019-07-09 15:16] LABS: Albumin 2.5 g/dL (3.5-5.7); Albumin/Globulin Ratio 1.1 (1.1-2.2); Bilirubin,Total 1.5 mg/dL (0.3-1.0); Globulin 2.3 g/dL (2.4-3.5); Potassium 3.7 mEq/L (3.5-5.1); Total Protein 4.8 g/dL (6.4-8.9)
[2019-07-09] MEDS: Aspirin Enteric Coated 81 MG Tablet PO SCH (16:44)
[2019-07-09] MEDS: Magnesium Oxide 400 MG TABLET PO SCH (16:44)
[2019-07-09] MEDS: Metoprolol XL (24 HR) Succ 25 MG TAB.ER.24H PO SCH (16:44)
[2019-07-09] MEDS: Lactulose Oral Soln 20 GM/30 ML UDC PO SCH (20:54)
[2019-07-09] MEDS: *HR* Heparin 5,000 UNIT/ML VIAL SQ SCH (23:29)
[2019-07-10] MEDS: Lactulose Oral Soln 20 GM/30 ML UDC PO SCH ×3 (08:59→20:14)
[2019-07-10] MEDS: *HR* Heparin 5,000 UNIT/ML VIAL SQ SCH ×3 (09:00→22:51)
[2019-07-10] MEDS ORDERED: Furosemide 40 MG TABLET PO SCH (09:00)
[2019-07-10] MEDS: Metoprolol XL (24 HR) Succ 25 MG TAB.ER.24H PO SCH (09:00)
[2019-07-10] MEDS: Magnesium Oxide 400 MG TABLET PO SCH (09:01)
[2019-07-10] MEDS: Spironolactone 25 MG TABLET PO SCH (09:01)
[2019-07-10] MEDS: Furosemide 40 MG TABLET PO SCH (09:02)
[2019-07-10] MEDS: Aspirin Enteric Coated 81 MG Tablet PO SCH (09:02)
[2019-07-10] MEDS: 0.9 % Sodium Chloride 1,000 ML IVC SCH ×2 (12:52→20:54)
[2019-07-11] MEDS: 0.9 % Sodium Chloride 1,000 ML IVC SCH (04:40)
[2019-07-11 06:27] LABS: Hematocrit 28.5 % (37.5-50.1); Hemoglobin 9.3 g/dL (12.9-16.9); Mean Corpuscular HGB Conc 32.6 g/dL (31.6-35.5); Mean Corpuscular Hemoglobin 33.6 pg (28.0-33.3); Mean Corpuscular Volume 102.9 fL (83.0-100.0); Mean Platelet Volume 12.9 fL (9.4-12.4); Red Blood Count 2.77 M/mcL (4.19-5.50); Red Cell Distribution Width 15.3 % (11.5-14.5); White Blood Count 2.5 K/mcL (4.3-11.1)
[2019-07-11 06:29] LABS: Platelet Count 50 K/mcL (140-400)
[2019-07-11 06:46] LABS: Calcium 8.9 mg/dL (8.6-10.3); Magnesium 1.7 mg/dL (1.6-2.6); Potassium 4.1 mEq/L (3.5-5.1)
[2019-07-11 06:54] VITALS: BP 146/77
[2019-07-11] MEDS: Spironolactone 25 MG TABLET PO SCH (08:11)
[2019-07-11] MEDS: Metoprolol XL (24 HR) Succ 25 MG TAB.ER.24H PO SCH (08:11)
[2019-07-11] MEDS: Magnesium Oxide 400 MG TABLET PO SCH (08:11)
[2019-07-11] MEDS: Lactulose Oral Soln 20 GM/30 ML UDC PO SCH (08:11)
[2019-07-11] MEDS: Furosemide 40 MG TABLET PO SCH (08:11)
[2019-07-11] MEDS: *HR* Heparin 5,000 UNIT/ML VIAL SQ SCH (08:12)
[2019-07-11] MEDS: Aspirin Enteric Coated 81 MG Tablet PO SCH (08:12)
== END 2019-07-11 11:40 | disposition home or self-care (01) | DRG 433 ==
LOC: INPPIK 17:49 → EMEROOPIK 17:49 → INPPIK 22:35
PROVIDERS: ADMIT Family Medicine; ATTEND Family Medicine